=== PATIENT | female | born 1980 | race African-American/Black ===

== ENCOUNTER 2021-07-04 16:37 | Emergency (ER) | payer SELFPAY ==
[2021-07-04 16:39] VITALS: BP 144/83; PULSE 105; RESP 17; TEMP 36.8; O2SAT 98
--- NOTE | 2021-07-04 16:54 | ED.DENTAL ---
HPI - Dental/Oral General Chief complaint: Dental/Oral Stated complaint: abcess tooth Time Seen by Provider: 07/04/21 16:46 History of Present Illness HPI Narrative: 41-year-old female presents to the emergency room with complaints of dental pain for 3 days. Patient states she was eating a crispy chicken salad she had believes a piece of the food got caught between teeth for several days. Patient states pain is worse with mastication, and has noticed some redness around the tooth and tenderness to her face. Related Data Allergies Allergy/AdvReac Type Severity Reaction Status Date / Time No Known Allergies Allergy Verified 07/04/21 17:08 Review of Systems Review of Systems: CONSTITUTIONAL: Denies fever, chills, or sweats. EYES: Denies visual changes, redness, or discharge. ENT: Denies rhinorrhea, congestion, sore throat, or otalgia. Reports dental pain CARDIOVASCULAR: Denies chest pain, palpitations, or edema. RESPIRATORY: Denies cough or dyspnea. GASTROINTESTINAL: Denies abdominal pain, nausea, vomiting, or diarrhea. GENITOURINARY: Denies dysuria or hematuria. SKIN: Denies rash or itching. MUSCULOSKELETAL: Denies back pain, joint pain, or myalgia. NEUROLOGIC: Denies headache, numbness, dizziness, or weakness. PSYCHIATRIC: Denies anxiety or depression. Exam Narrative: GENERAL: Well-appearing, well-nourished, and in no acute distress. HEAD: Normocephalic, atraumatic. EYES: PERRLA and EOMI. ENT: Nares clear, no rhinorrhea or epistaxis. Mucous membranes moist. Tenderness to tooth #2, surrounding erythema and gingival inflammation NECK: Supple. No adenopathy or masses. No carotid bruits or JVD CHEST: Clear to auscultation. No respiratory distress. No wheezes rales or rhonchi HEART: Regular rate and rhythm. No murmur heard. Normal peripheral pulses. ABDOMEN: Soft, nontender, nondistended, normal active bowel sounds. EXTREMITIES: Normal range of motion. No edema. SKIN: Warm, dry, no rash. NEURO: No focal deficits. Alert and oriented x3. PSYCH: Normal mood and affect. Course Vital Signs Vital signs: Vital Signs Temperature 36.8 C 07/04/21 16:39 Pulse Rate 105 H 07/04/21 16:39 Respiratory Rate 17 07/04/21 16:39 Blood Pressure 144/83 H 07/04/21 16:39 Pulse Oximetry 98 07/04/21 16:39 Temperature 36.8 C 07/04/21 16:39 Pulse Rate 105 H 07/04/21 16:39 Respiratory Rate 17 07/04/21 16:39 Blood Pressure 144/83 H 07/04/21 16:39 Pulse Oximetry 98 07/04/21 16:39 MDM - Dental/Oral MDM Narrative Medical decision making narrative: IV clindamycin 600 given for suspected early dental abscess to tooth #2. Will discharge patient home with a course of p.o. clindamycin, close follow-up with dentistry Discharge Plan Discharge Clinical Impression: Dental abscess, Toothache Patient Disposition: Home, Self-Care Condition: Stable Instructions: Antibiotic Form, Dental Abscess (ED) Additional Instructions: Take medications as prescribed. Follow-up with dentist in 7 to 10 days. Prescriptions: New clindamycin HCl 300 mg capsule 300 mg PO Q8H Qty: 30 RF: 0 naproxen 500 mg tablet 500 mg PO BID Qty: 14 RF: 0 Follow-up/Referrals: PHYSICIAN NOT ON STAFF,NONSTAFF [Primary Care Provider] - Stand Alone Forms: Work/School Release IP Time of Disposition: 17:43
[2021-07-04] MEDS: Please add drug allergy info to patient profile. 1 EACH XX (17:19)
[2021-07-04] MEDS: CLINDAMYCIN 600 MG/D5W 50 ML 600 MG/50 ML PIGGYBACK 100 MG IVPB (17:31)
[2021-07-04 18:02] VITALS: BP 150/82; PULSE 99; RESP 16; TEMP 36.8; O2SAT 100
== END 2021-07-04 18:10 | disposition home or self-care (01) ==
PROVIDERS: Emergency Provider Nurse Practitioner Family
DX: K04.7 Periapical abscess without sinus (principal)
CPT/HCPCS: 96365; 99284